=== PATIENT | male | born 1955 | race Caucasian/White ===

== ENCOUNTER 2020-01-23 10:36 | Observation (INO) ==
[2020-01-23 10:58] LABS: VBG HCO3 36 mEq/L (21-27); VBG PCO2 79 mmHg (41-51); VBG PH 7.27 pH Units (7.32-7.42); VBG PO2 26 mmHg (25-50)
[2020-01-23 11:12] LABS: Basophils % 0.7 %; Eosinophils % 0.7 %; Hemoglobin 17.2 g/dL (12.9-16.9); Immature Granulocytes % 0.4 % (0-4); Immature Platelets 6.5 % (1.1-6.1); Lymphocytes # 1.6 K/mcL (0.6-4.6); Lymphocytes % 28.4 %; Mean Corpuscular HGB Conc 30.7 g/dL (31.6-35.5); Mean Corpuscular Hemoglobin 32.1 pg (28.0-33.3); Mean Corpuscular Volume 104.7 fL (83.0-100.0); Mean Platelet Volume 9.9 fL (9.4-12.4); Monocytes # 0.5 K/mcL (0.0-1.3); Monocytes % 9.3 %; Neutrophils # 3.4 K/mcL (1.6-8.9); Nucleated Red Blood Cells 0.4 /100 WBC (0); Platelet Count 130 K/mcL (140-400); Red Blood Count 5.36 M/mcL (4.19-5.50); Segmented Neutrophils % 60.5 %; White Blood Count 5.6 K/mcL (4.3-11.1)
[2020-01-23 11:13] LABS: Hematocrit 56.1 % (37.5-50.1)
[2020-01-23 11:40] LABS: Alanine Aminotransferase 55 Units/L (7-52); Albumin 4.1 g/dL (3.5-5.7); Albumin/Globulin Ratio 1.3 (1.1-2.2); Alkaline Phosphatase 45 Units/L (34-104); Aspartate Amino Transferase 36 Units/L (13-39); BUN/Creatinine Ratio 24 (6-26); Bilirubin,Direct 0.3 mg/dL (0.0-0.2); Bilirubin,Indirect 0.6 mg/dL (0.0-1.0); Bilirubin,Total 0.9 mg/dL (0.3-1.0); Blood Urea Nitrogen 19 mg/dL (8-23); Calcium 9.3 mg/dL (8.6-10.3); Carbon Dioxide 33 mEq/L (23-29); Chloride 94 mEq/L (98-107); Globulin 3.1 g/dL (2.4-3.5); Glucose 117 mg/dL (70-105); Osmolality,Calculated 279 (280-300); Potassium 5.1 mEq/L (3.5-5.1); Sodium 133 mEq/L (136-145); Total Protein 7.2 g/dL (6.4-8.9); Troponin I 0.03 ng/mL (< 0.04); eGFR For African Americans > 60 (> 60); eGFR For Non-African Americans > 60 (> 60)
[2020-01-23 12:39] LABS: INR 1.1; Prothrombin Time 12.6 Seconds (9.4-12.1)
[2020-01-23] MEDS ORDERED: Isovue-370 500 ML BOTTLE IVP ONE ×2 (12:46→14:47)
[2020-01-23] MEDS ORDERED: Naloxone 0.4 MG/ML INJ IVP PRN (14:51)
[2020-01-23] MEDS ORDERED: Ondansetron 4 MG/2 ML VIAL IVP PRN (14:51)
[2020-01-23] MEDS ORDERED: Perflutren Lipid Microsphere 1.3 ML in 0.9 % Sodium Chloride 8.7 ML IVP PRN (15:00)
[2020-01-23] MEDS ORDERED: Azithromycin 500 MG in 0.9 % Sodium Chloride 250 ML IVPB SCH (15:00)
[2020-01-23] MEDS: Albuterol 2.5 MG/3 ML NEBULIZER IH SCH ×2 (16:19→19:58)
[2020-01-23] MEDS: Furosemide 20 MG TABLET PO SCH (16:36)
[2020-01-23] MEDS: MethylPREDNISolone 40 MG/ML VIAL IVP SCH (16:36)
[2020-01-23] MEDS: *HR* Heparin 5,000 UNIT/ML VIAL SQ SCH ×2 (16:36→16:45)
[2020-01-24] MEDS: Albuterol 2.5 MG/3 ML NEBULIZER IH SCH ×3 (00:15→07:37)
[2020-01-24] MEDS: MethylPREDNISolone 40 MG/ML VIAL IVP SCH ×2 (00:15→05:53)
[2020-01-24 00:28] VITALS: BP 102/59
[2020-01-24] MEDS: Furosemide 20 MG TABLET PO SCH (10:22)
== END 2020-01-24 12:14 | disposition left against medical advice (07) ==
LOC: EMEROOARM 10:36 → 2ANU 10:36
PROVIDERS: ADMIT Internal Medicine; ATTEND Internal Medicine

== ENCOUNTER 2020-02-05 11:06 | Inpatient (IN) ==
[2020-02-05] MEDS ORDERED: Morphine Sulfate 2 MG/ML SYRINGE IVP ONE (11:20)
[2020-02-05] MEDS ORDERED: Ondansetron 4 MG/2 ML VIAL IVP ONE (11:20)
[2020-02-05] MEDS ORDERED: Dexamethasone 4 MG/ML VIAL IVP ONE (11:20)
[2020-02-05] MEDS ORDERED: Ipratropium/Albuterol Neb 3 ML IH ONE (11:44)
[2020-02-05 12:02] LABS: Alanine Aminotransferase 44 Units/L (7-52); Albumin 3.7 g/dL (3.5-5.7); Albumin/Globulin Ratio 1.2 (1.1-2.2); Alkaline Phosphatase 34 Units/L (34-104); Aspartate Amino Transferase 50 Units/L (13-39); BUN/Creatinine Ratio 26 (6-26); Bilirubin,Direct 0.2 mg/dL (0.0-0.2); Bilirubin,Indirect 0.7 mg/dL (0.0-1.0); Bilirubin,Total 0.9 mg/dL (0.3-1.0); Blood Urea Nitrogen 28 mg/dL (8-23); C-Reactive Protein 14 mg/L (Less than 10); Calcium 8.3 mg/dL (8.6-10.3); Carbon Dioxide 31 mEq/L (23-29); Chloride 90 mEq/L (98-107); Globulin 3.2 g/dL (2.4-3.5); Glucose 122 mg/dL (70-105); Lactate Dehydrogenase 260 Units/L (140-271); Osmolality,Calculated 279 (280-300); Phosphorous 4.7 mg/dL (2.7-4.5); Potassium 5.3 mEq/L (3.5-5.1); Sodium 131 mEq/L (136-145); Total Protein 6.9 g/dL (6.4-8.9); Troponin I 0.06 ng/mL (< 0.04); eGFR For African Americans > 60 (> 60); eGFR For Non-African Americans > 60 (> 60)
[2020-02-05] MEDS ORDERED: 0.9 % Sodium Chloride 1,000 ML IVC ONE ×2 (12:04→13:12)
[2020-02-05 12:26] LABS: Ferritin 43 ng/mL (20-250)
[2020-02-05 12:46] LABS: Basophils % 0.7 %; Hemoglobin 17.6 g/dL (12.9-16.9); INR 1.1; Immature Platelets 9.1 % (1.1-6.1); Lymphocytes # 0.8 K/mcL (0.6-4.6); Lymphocytes % 26.7 %; Mean Corpuscular HGB Conc 30.2 g/dL (31.6-35.5); Mean Corpuscular Hemoglobin 31.7 pg (28.0-33.3); Mean Corpuscular Volume 104.9 fL (83.0-100.0); Monocytes # 0.4 K/mcL (0.0-1.3); Monocytes % 12.8 %; Red Blood Count 5.56 M/mcL (4.19-5.50); Red Cell Distribution Width 16.5 % (11.5-14.5); Segmented Neutrophils % 58.8 %
[2020-02-05 12:49] LABS: Activated Partial Thrombo Time 26.2 Seconds (26.0-36.0)
[2020-02-05 12:51] LABS: Hematocrit 58.3 % (37.5-50.1); Neutrophils # 1.8 K/mcL (1.6-8.9); Platelet Count 86 K/mcL (140-400)
[2020-02-05] MEDS: FentaNYL (PF) 1,000 MCG/100 ML IV.SOLN IVC SCH ×2 (13:00→22:26)
[2020-02-05] MEDS ORDERED: *HR* FentaNYL (PF) 1,000 MCG/20 ML VIAL ONE (13:07)
[2020-02-05] MEDS ORDERED: Cefepime HCl 1,000 MG in Water for inj. (sterile) 10 ML IVP STA (13:12)
[2020-02-05] MEDS ORDERED: Vancomycin 1,250 MG/262.5 ML IV.SOLN IVPB ONE (13:12)
[2020-02-05] MEDS: DilTIAZem 50 MG/50 ML IV.SOLN IVC SCH (14:02)
[2020-02-05 14:08] LABS: ABG Base Excess 1 mEq/L (-2 to 3); ABG HCO3 32 mEq/L (21-27); ABG Oxygen Saturation 100 % (95-98); ABG PCO2 75 mmHg (35-45); ABG PH 7.24 pH Units (7.32-7.45); ABG PO2 275 mmHg (85-104); ABG TCO2 34 mEq/L (20-26); Blood Gas Modality ASSIST CONTROL; Blood Gas VT 500 cc
[2020-02-05] MEDS ORDERED: Artificial Tears SOLN 15 ML BOTTLE BOTH EYES PRN (15:20)
[2020-02-05] MEDS ORDERED: *HR* Etomidate 20 MG/10 ML AMPUL IVP ONE (17:15)
[2020-02-05] MEDS ORDERED: *HR* Rocuronium Bromide 100 MG/10 ML VIAL IVP ONE (17:15)
[2020-02-05 17:17] LABS: ABG Base Excess 2 mEq/L (-2 to 3); ABG HCO3 32 mEq/L (21-27); ABG Oxygen Saturation 95 % (95-98); ABG PCO2 68 mmHg (35-45); ABG PH 7.27 pH Units (7.32-7.45); ABG PO2 90 mmHg (85-104); ABG TCO2 34 mEq/L (20-26); Blood Gas Modality ASSIST CONTROL; Blood Gas VT 500 cc
[2020-02-05] MEDS: Doxycycline 100 MG in 0.9 % Sodium Chloride Mini Bag 100 ML IVPB SCH (18:32)
[2020-02-05] MEDS: Artificial Tears SOLN 15 ML BOTTLE BOTH EYES SCH ×2 (18:38→19:54)
[2020-02-05] MEDS: Cefepime HCl 2,000 MG in Water for inj. (sterile) 20 ML IVP SCH (18:38)
[2020-02-05] MEDS ORDERED: Naloxone 0.4 MG/ML INJ IVP PRN (19:38)
[2020-02-05] MEDS: Chlorhexidine Rinse 15 ML MOUTHWASH MM SCH (19:54)
[2020-02-05] MEDS: Phenylephrine 10 MG in 0.9 % Sodium Chloride 250 ML IVC SCH (20:59)
[2020-02-05] MEDS ORDERED: Perflutren Lipid Microsphere 1.3 ML in 0.9 % Sodium Chloride 8.7 ML IVP PRN (22:13)
[2020-02-05] MEDS ORDERED: *HR* Heparin 5,000 UNIT/ML VIAL IVP PRN ×2 (22:15)
[2020-02-05] MEDS ORDERED: *HR* Heparin 5,000 UNIT/ML VIAL IVP ONE (22:15)
[2020-02-06] MEDS ORDERED: *HR* Heparin 5,000 UNIT/ML VIAL SQ SCH
[2020-02-06] MEDS: Cefepime HCl 2,000 MG in Water for inj. (sterile) 20 ML IVP SCH ×3 (00:06→15:43)
[2020-02-06] MEDS: Heparin 25,000UNIT/250ML 1/2NS 25,000 UNIT/250 ML IV.SOLN IVC SCH ×2 (00:07→20:21)
[2020-02-06] MEDS: Artificial Tears SOLN 15 ML BOTTLE BOTH EYES SCH ×6 (00:08→20:21)
[2020-02-06] MEDS: Vancomycin 1,250 MG/262.5 ML IV.SOLN IVPB SCH ×2 (00:56→13:55)
[2020-02-06 04:31] LABS: ABG Base Excess 4 mEq/L (-2 to 3); ABG HCO3 27 mEq/L (21-27); ABG Oxygen Saturation 97 % (95-98); ABG PCO2 33 mmHg (35-45); ABG PH 7.52 pH Units (7.32-7.45); ABG PO2 81 mmHg (85-104); ABG TCO2 28 mEq/L (20-26); Blood Gas Modality ASSIST CONTROL; Blood Gas VT 500 cc
[2020-02-06] MEDS: Pantoprazole 40 MG VIAL IVP SCH ×2 (05:16→18:00)
[2020-02-06] MEDS: Doxycycline 100 MG in 0.9 % Sodium Chloride Mini Bag 100 ML IVPB SCH ×2 (05:16→18:00)
[2020-02-06 06:27] LABS: Heparin anti-factor XA UFH 1.41 IU/mL (0.30-0.70)
[2020-02-06] MEDS: Phenylephrine 10 MG in 0.9 % Sodium Chloride 250 ML IVC SCH (06:34)
[2020-02-06 06:37] LABS: Hematocrit 48.7 % (37.5-50.1)
[2020-02-06] MEDS: FentaNYL (PF) 1,000 MCG/100 ML IV.SOLN IVC SCH ×3 (06:37→23:01)
[2020-02-06 06:39] LABS: Basophils % 0.4 %; Hemoglobin 15.8 g/dL (12.9-16.9); Immature Granulocytes % 0.4 % (0-4); Immature Platelets 8.8 % (1.1-6.1); Lymphocytes # 0.6 K/mcL (0.6-4.6); Lymphocytes % 23.7 %; Mean Corpuscular HGB Conc 32.4 g/dL (31.6-35.5); Mean Corpuscular Hemoglobin 31.7 pg (28.0-33.3); Mean Corpuscular Volume 97.8 fL (83.0-100.0); Mean Platelet Volume 11.7 fL (9.4-12.4); Monocytes # 0.3 K/mcL (0.0-1.3); Monocytes % 11.6 %; Neutrophils # 1.6 K/mcL (1.6-8.9); Platelet Count 76 K/mcL (140-400); Red Blood Count 4.98 M/mcL (4.19-5.50); Segmented Neutrophils % 63.9 %; White Blood Count 2.5 K/mcL (4.3-11.1)
[2020-02-06 06:56] LABS: BUN/Creatinine Ratio 33 (6-26); Blood Urea Nitrogen 31 mg/dL (8-23); Calcium 7.5 mg/dL (8.6-10.3); Carbon Dioxide 25 mEq/L (23-29); Chloride 96 mEq/L (98-107); Glucose 103 mg/dL (70-105); Magnesium 1.7 mg/dL (1.6-2.6); Osmolality,Calculated 281 (280-300); Phosphorous 2.7 mg/dL (2.7-4.5); Sodium 132 mEq/L (136-145); eGFR For African Americans > 60 (> 60); eGFR For Non-African Americans > 60 (> 60)
[2020-02-06] MEDS: Chlorhexidine Rinse 15 ML MOUTHWASH MM SCH ×2 (08:31→20:21)
[2020-02-06] MEDS: Dexamethasone 4 MG/ML VIAL IVP SCH (08:32)
[2020-02-06] MEDS ORDERED: Pantoprazole 40 MG VIAL IVP SCH (09:00)
[2020-02-06] MEDS: Norepinephrine 4 MG/254 ML IV.SOLN IVC SCH ×3 (09:09→23:00)
[2020-02-06] MEDS: DilTIAZem 50 MG/50 ML IV.SOLN IVC SCH (13:51)
[2020-02-07] MEDS: Cefepime HCl 2,000 MG in Water for inj. (sterile) 20 ML IVP SCH ×4 (00:06→23:41)
[2020-02-07] MEDS: Artificial Tears SOLN 15 ML BOTTLE BOTH EYES SCH ×7 (00:06→23:41)
[2020-02-07] MEDS: Vancomycin 1,250 MG/262.5 ML IV.SOLN IVPB SCH (01:34)
[2020-02-07 05:04] LABS: ABG Base Excess 4 mEq/L (-2 to 3); ABG HCO3 31 mEq/L (21-27); ABG Oxygen Saturation 94 % (95-98); ABG PCO2 56 mmHg (35-45); ABG PH 7.35 pH Units (7.32-7.45); ABG PO2 78 mmHg (85-104); ABG TCO2 33 mEq/L (20-26); Blood Gas Modality AF; Blood Gas VT 450 cc
[2020-02-07] MEDS: FentaNYL (PF) 1,000 MCG/100 ML IV.SOLN IVC SCH ×3 (05:10→19:38)
[2020-02-07] MEDS: Pantoprazole 40 MG VIAL IVP SCH ×2 (05:10→18:05)
[2020-02-07] MEDS: Doxycycline 100 MG in 0.9 % Sodium Chloride Mini Bag 100 ML IVPB SCH ×2 (05:10→18:04)
[2020-02-07 05:41] LABS: Hematocrit 49.5 % (37.5-50.1); Immature Granulocytes % 0.3 % (0-4); Mean Corpuscular Volume 100.4 fL (83.0-100.0); Red Blood Count 4.93 M/mcL (4.19-5.50); Red Cell Distribution Width 16.3 % (11.5-14.5)
[2020-02-07 05:43] LABS: Hemoglobin 15.6 g/dL (12.9-16.9); Immature Platelets 8.3 % (1.1-6.1); Lymphocytes # 0.3 K/mcL (0.6-4.6); Lymphocytes % 8.9 %; Mean Corpuscular HGB Conc 31.5 g/dL (31.6-35.5); Mean Corpuscular Hemoglobin 31.6 pg (28.0-33.3); Mean Platelet Volume 11.9 fL (9.4-12.4); Monocytes # 0.3 K/mcL (0.0-1.3); Monocytes % 8.6 %; Neutrophils # 2.9 K/mcL (1.6-8.9); Segmented Neutrophils % 82.2 %; White Blood Count 3.5 K/mcL (4.3-11.1)
[2020-02-07 05:54] LABS: Heparin anti-factor XA UFH 0.64 IU/mL (0.30-0.70)
[2020-02-07 05:58] LABS: Alanine Aminotransferase 31 Units/L (7-52); Albumin 2.8 g/dL (3.5-5.7); Alkaline Phosphatase 25 Units/L (34-104); Aspartate Amino Transferase 35 Units/L (13-39); BUN/Creatinine Ratio 30 (6-26); Bilirubin,Total 0.9 mg/dL (0.3-1.0); Blood Urea Nitrogen 25 mg/dL (8-23); Calcium 7.6 mg/dL (8.6-10.3); Carbon Dioxide 28 mEq/L (23-29); Chloride 101 mEq/L (98-107); Globulin 2.7 g/dL (2.4-3.5); Glucose 134 mg/dL (70-105); Magnesium 1.7 mg/dL (1.6-2.6); Osmolality,Calculated 288 (280-300); Potassium 4.1 mEq/L (3.5-5.1); Sodium 136 mEq/L (136-145); Total Protein 5.5 g/dL (6.4-8.9); eGFR For African Americans > 60 (> 60); eGFR For Non-African Americans > 60 (> 60)
[2020-02-07 06:10] LABS: Thyroid Stimulating Hormone 0.905 mcIU/mL (0.340-5.600)
[2020-02-07 06:13] LABS: Platelet Count 77 K/mcL (140-400)
[2020-02-07] MEDS: Chlorhexidine Rinse 15 ML MOUTHWASH MM SCH ×2 (07:55→20:45)
[2020-02-07] MEDS: Dexamethasone 4 MG/ML VIAL IVP SCH (07:56)
[2020-02-07] MEDS: Heparin 25,000UNIT/250ML 1/2NS 25,000 UNIT/250 ML IV.SOLN IVC SCH ×2 (08:36→18:07)
[2020-02-07] MEDS ORDERED: Dexamethasone Sodium Phos/PF 10 MG/ML VIAL IVP ONE (11:30)
[2020-02-07] MEDS: Aspirin 81 MG TAB.CHEW PO SCH (15:18)
[2020-02-07] MEDS: DilTIAZem 50 MG/50 ML IV.SOLN IVC SCH (15:18)
[2020-02-07] MEDS: Norepinephrine 4 MG/254 ML IV.SOLN IVC SCH (15:55)
[2020-02-07] MEDS: Midazolam HCl 50 MG/100 ML IV.SOLN IVC SCH (17:45)
[2020-02-07] MEDS: Phenylephrine 10 MG in 0.9 % Sodium Chloride 250 ML IVC SCH (20:46)
[2020-02-07] MEDS ORDERED: Furosemide 40 MG/4 ML VIAL IVP ONE (21:50)
[2020-02-08] MEDS: FentaNYL (PF) 1,000 MCG/100 ML IV.SOLN IVC SCH ×2 (01:49→09:40)
[2020-02-08] MEDS: Artificial Tears SOLN 15 ML BOTTLE BOTH EYES SCH ×6 (02:52→23:11)
[2020-02-08 03:54] LABS: Hematocrit 50.4 % (37.5-50.1); Hemoglobin 16.3 g/dL (12.9-16.9); Immature Granulocytes % 0.4 % (0-4); Immature Platelets 8.5 % (1.1-6.1); Lymphocytes # 0.2 K/mcL (0.6-4.6); Lymphocytes % 3.5 %; Mean Corpuscular HGB Conc 32.3 g/dL (31.6-35.5); Mean Corpuscular Hemoglobin 31.8 pg (28.0-33.3); Mean Corpuscular Volume 98.4 fL (83.0-100.0); Mean Platelet Volume 11.2 fL (9.4-12.4); Monocytes # 0.3 K/mcL (0.0-1.3); Monocytes % 7.3 %; Platelet Count 76 K/mcL (140-400); Red Blood Count 5.12 M/mcL (4.19-5.50); Red Cell Distribution Width 16.8 % (11.5-14.5); Segmented Neutrophils % 88.8 %; White Blood Count 4.5 K/mcL (4.3-11.1)
[2020-02-08 04:11] LABS: BUN/Creatinine Ratio 29 (6-26); Blood Urea Nitrogen 21 mg/dL (8-23); Carbon Dioxide 32 mEq/L (23-29); Chloride 99 mEq/L (98-107); Glucose 163 mg/dL (70-105); Osmolality,Calculated 291 (280-300); Potassium 3.9 mEq/L (3.5-5.1); Sodium 137 mEq/L (136-145); eGFR For African Americans > 60 (> 60); eGFR For Non-African Americans > 60 (> 60)
[2020-02-08 04:23] LABS: Anisocytosis 1+ (Not Present); Platelet Estimate Decreased (Normal); Reactive Lymphocytes Present (Not Present)
[2020-02-08 05:39] LABS: ABG Base Excess 6 mEq/L (-2 to 3); ABG HCO3 35 mEq/L (21-27); ABG Oxygen Saturation 90 % (95-98); ABG PCO2 61 mmHg (35-45); ABG PH 7.36 pH Units (7.32-7.45); ABG PO2 62 mmHg (85-104); ABG TCO2 37 mEq/L (20-26); Blood Gas VT 450 cc
[2020-02-08] MEDS: Doxycycline 100 MG in 0.9 % Sodium Chloride Mini Bag 100 ML IVPB SCH ×2 (05:50→17:20)
[2020-02-08] MEDS: Pantoprazole 40 MG VIAL IVP SCH (05:51)
[2020-02-08] MEDS: Midazolam HCl 50 MG/100 ML IV.SOLN IVC SCH ×3 (09:39→23:40)
[2020-02-08] MEDS: Cefepime HCl 2,000 MG in Water for inj. (sterile) 20 ML IVP SCH ×3 (10:05→23:12)
[2020-02-08] MEDS: Chlorhexidine Rinse 15 ML MOUTHWASH MM SCH ×2 (10:05→21:15)
[2020-02-08] MEDS: Aspirin 81 MG TAB.CHEW PO SCH (10:06)
[2020-02-08] MEDS: Norepinephrine 4 MG/254 ML IV.SOLN IVC SCH (11:14)
[2020-02-08] MEDS: DilTIAZem 50 MG/50 ML IV.SOLN IVC SCH (14:07)
[2020-02-08] MEDS: FentaNYL (PF) 2,500 MCG/50 ML IV.SOLN IVC SCH ×2 (14:57→23:39)
[2020-02-08] MEDS: Furosemide 40 MG/4 ML VIAL IVP SCH (21:15)
[2020-02-08] MEDS: Heparin 25,000UNIT/250ML 1/2NS 25,000 UNIT/250 ML IV.SOLN IVC SCH (21:21)
[2020-02-08] MEDS: Phenylephrine 10 MG in 0.9 % Sodium Chloride 250 ML IVC SCH (21:22)
[2020-02-08] MEDS ORDERED: 0.9 % Sodium Chloride 500 ML ONE (23:01)
[2020-02-09] MEDS: Norepinephrine 4 MG/254 ML IV.SOLN IVC SCH ×2 (00:46→18:42)
[2020-02-09 04:09] LABS: VBG Ionized Calcium 1.04 mmol/L (1.15-1.35)
[2020-02-09 04:16] LABS: ABG Base Excess 8 mEq/L (-2 to 3); ABG HCO3 36 mEq/L (21-27); ABG Oxygen Saturation 92 % (95-98); ABG PCO2 59 mmHg (35-45); ABG PO2 68 mmHg (85-104); ABG TCO2 38 mEq/L (20-26); Blood Gas VT 420 cc
[2020-02-09 04:17] LABS: Immature Granulocytes % 0.4 % (0-4)
[2020-02-09 04:19] LABS: Hematocrit 48.6 % (37.5-50.1); Hemoglobin 15.7 g/dL (12.9-16.9); Immature Platelets 9.3 % (1.1-6.1); Lymphocytes # 0.2 K/mcL (0.6-4.6); Lymphocytes % 4.9 %; Mean Corpuscular HGB Conc 32.3 g/dL (31.6-35.5); Mean Corpuscular Hemoglobin 32.6 pg (28.0-33.3); Mean Corpuscular Volume 100.8 fL (83.0-100.0); Mean Platelet Volume 11.7 fL (9.4-12.4); Monocytes # 0.4 K/mcL (0.0-1.3); Monocytes % 7.1 %; Neutrophils # 4.3 K/mcL (1.6-8.9); Red Blood Count 4.82 M/mcL (4.19-5.50); Red Cell Distribution Width 16.3 % (11.5-14.5); Segmented Neutrophils % 87.6 %; White Blood Count 4.9 K/mcL (4.3-11.1)
[2020-02-09] MEDS: Artificial Tears SOLN 15 ML BOTTLE BOTH EYES SCH ×5 (04:20→21:16)
[2020-02-09 04:28] LABS: Platelet Count 80 K/mcL (140-400)
[2020-02-09 04:35] LABS: Alanine Aminotransferase 24 Units/L (7-52); Albumin 2.9 g/dL (3.5-5.7); Alkaline Phosphatase 28 Units/L (34-104); Aspartate Amino Transferase 25 Units/L (13-39); BUN/Creatinine Ratio 29 (6-26); Bilirubin,Total 0.7 mg/dL (0.3-1.0); Blood Urea Nitrogen 20 mg/dL (8-23); Calcium 7.9 mg/dL (8.6-10.3); Carbon Dioxide 35 mEq/L (23-29); Chloride 97 mEq/L (98-107); Glucose 172 mg/dL (70-105); Magnesium 1.6 mg/dL (1.6-2.6); Osmolality,Calculated 289 (280-300); Phosphorous 2.7 mg/dL (2.7-4.5); Sodium 136 mEq/L (136-145); Total Protein 5.9 g/dL (6.4-8.9); eGFR For African Americans > 60 (> 60); eGFR For Non-African Americans > 60 (> 60)
[2020-02-09] MEDS: Doxycycline 100 MG in 0.9 % Sodium Chloride Mini Bag 100 ML IVPB SCH ×2 (05:32→17:07)
[2020-02-09] MEDS: Midazolam HCl 50 MG/100 ML IV.SOLN IVC SCH ×2 (06:37→16:35)
[2020-02-09] MEDS: FentaNYL (PF) 2,500 MCG/50 ML IV.SOLN IVC SCH ×2 (06:38→18:18)
[2020-02-09] MEDS: Furosemide 40 MG/4 ML VIAL IVP SCH ×2 (07:48→15:13)
[2020-02-09] MEDS: Chlorhexidine Rinse 15 ML MOUTHWASH MM SCH ×2 (07:48→21:16)
[2020-02-09] MEDS: Cefepime HCl 2,000 MG in Water for inj. (sterile) 20 ML IVP SCH ×2 (07:50→15:12)
[2020-02-09] MEDS: Aspirin 81 MG TAB.CHEW PO SCH (07:51)
[2020-02-09] MEDS: Pantoprazole 40 MG VIAL IVP SCH (07:51)
[2020-02-09] MEDS ORDERED: Bisacodyl 10 MG RECTAL SUPPOSITORY RC PRN (11:27)
[2020-02-09] MEDS: DilTIAZem 50 MG/50 ML IV.SOLN IVC SCH (11:49)
[2020-02-09] MEDS: Heparin 25,000UNIT/250ML 1/2NS 25,000 UNIT/250 ML IV.SOLN IVC SCH (13:39)
[2020-02-09] MEDS: Phenylephrine 10 MG in 0.9 % Sodium Chloride 250 ML IVC SCH (16:37)
[2020-02-09] MEDS: Lactulose Oral Soln 20 GM/30 ML UDC PO SCH (21:16)
[2020-02-10] MEDS: Midazolam HCl 50 MG/100 ML IV.SOLN IVC SCH ×3 (02:30→20:55)
[2020-02-10] MEDS: Artificial Tears SOLN 15 ML BOTTLE BOTH EYES SCH ×6 (04:08→20:23)
[2020-02-10] MEDS ORDERED: *HR* Metoprolol 5 MG/5 ML VIAL IVP ONE ×2 (04:28→04:37)
[2020-02-10 04:34] LABS: ABG Base Excess 12 mEq/L (-2 to 3); ABG HCO3 41 mEq/L (21-27); ABG Oxygen Saturation 93 % (95-98); ABG PCO2 71 mmHg (35-45); ABG PH 7.37 pH Units (7.32-7.45); ABG PO2 71 mmHg (85-104); ABG TCO2 43 mEq/L (20-26); Blood Gas Modality ASSIST CONTROL; Blood Gas VT 420 cc
[2020-02-10] MEDS: Doxycycline 100 MG in 0.9 % Sodium Chloride Mini Bag 100 ML IVPB SCH ×2 (05:47→16:55)
[2020-02-10] MEDS: FentaNYL (PF) 2,500 MCG/50 ML IV.SOLN IVC SCH ×2 (05:47→16:52)
[2020-02-10 06:11] LABS: Red Cell Distribution Width 16.1 % (11.5-14.5)
[2020-02-10 06:13] LABS: Hemoglobin 13.7 g/dL (12.9-16.9); Immature Granulocytes % 0.3 % (0-4); Immature Platelets 9.8 % (1.1-6.1); Lymphocytes # 0.6 K/mcL (0.6-4.6); Lymphocytes % 9.6 %; Mean Corpuscular HGB Conc 31.1 g/dL (31.6-35.5); Mean Corpuscular Hemoglobin 31.2 pg (28.0-33.3); Mean Corpuscular Volume 100.2 fL (83.0-100.0); Mean Platelet Volume 11.2 fL (9.4-12.4); Monocytes # 0.4 K/mcL (0.0-1.3); Monocytes % 6.9 %; Neutrophils # 4.9 K/mcL (1.6-8.9); Red Blood Count 4.39 M/mcL (4.19-5.50); Segmented Neutrophils % 83.2 %; White Blood Count 5.9 K/mcL (4.3-11.1)
[2020-02-10 06:15] LABS: Heparin anti-factor XA UFH 0.53 IU/mL (0.30-0.70); Prothrombin Time 11.5 Seconds (9.4-12.1)
[2020-02-10 06:17] LABS: Platelet Count 75 K/mcL (140-400)
[2020-02-10 06:18] LABS: Activated Partial Thrombo Time 56.7 Seconds (26.0-36.0)
[2020-02-10 06:24] LABS: VBG Ionized Calcium 1.01 mmol/L (1.15-1.35)
[2020-02-10 06:37] LABS: Alanine Aminotransferase 25 Units/L (7-52); Albumin 2.6 g/dL (3.5-5.7); Alkaline Phosphatase 24 Units/L (34-104); Aspartate Amino Transferase 26 Units/L (13-39); BUN/Creatinine Ratio 37 (6-26); Bilirubin,Total 0.5 mg/dL (0.3-1.0); Blood Urea Nitrogen 26 mg/dL (8-23); Calcium 7.8 mg/dL (8.6-10.3); Carbon Dioxide 37 mEq/L (23-29); Chloride 96 mEq/L (98-107); Globulin 2.6 g/dL (2.4-3.5); Glucose 132 mg/dL (70-105); Magnesium 1.5 mg/dL (1.6-2.6); Osmolality,Calculated 291 (280-300); Phosphorous 2.9 mg/dL (2.7-4.5); Sodium 137 mEq/L (136-145); Total Protein 5.2 g/dL (6.4-8.9); eGFR For African Americans > 60 (> 60); eGFR For Non-African Americans > 60 (> 60)
[2020-02-10] MEDS: Furosemide 40 MG/4 ML VIAL IVP SCH ×2 (08:03→16:03)
[2020-02-10] MEDS: Pantoprazole 40 MG VIAL IVP SCH (08:04)
[2020-02-10] MEDS: Chlorhexidine Rinse 15 ML MOUTHWASH MM SCH ×2 (08:04→20:26)
[2020-02-10] MEDS: Aspirin 81 MG TAB.CHEW PO SCH (08:04)
[2020-02-10] MEDS: Cefepime HCl 2,000 MG in Water for inj. (sterile) 20 ML IVP SCH ×3 (08:04→16:03)
[2020-02-10] MEDS: DilTIAZem 50 MG/50 ML IV.SOLN IVC SCH (12:13)
[2020-02-10] MEDS: Heparin 25,000UNIT/250ML 1/2NS 25,000 UNIT/250 ML IV.SOLN IVC SCH (13:55)
[2020-02-10] MEDS: Phenylephrine 10 MG in 0.9 % Sodium Chloride 250 ML IVC SCH (20:24)
[2020-02-10] MEDS: Lactulose Oral Soln 20 GM/30 ML UDC PO SCH (20:26)
[2020-02-11] MEDS: Cefepime HCl 2,000 MG in Water for inj. (sterile) 20 ML IVP SCH ×4 (00:01→23:25)
[2020-02-11] MEDS: Artificial Tears SOLN 15 ML BOTTLE BOTH EYES SCH ×7 (00:01→23:25)
[2020-02-11 04:14] LABS: Immature Granulocytes % 0.4 % (0-4)
[2020-02-11 04:15] LABS: VBG Ionized Calcium 1.03 mmol/L (1.15-1.35)
[2020-02-11 04:16] LABS: Hematocrit 40.7 % (37.5-50.1); Hemoglobin 12.8 g/dL (12.9-16.9); Immature Platelets 9.4 % (1.1-6.1); Lymphocytes # 0.7 K/mcL (0.6-4.6); Lymphocytes % 10.2 %; Mean Corpuscular HGB Conc 31.4 g/dL (31.6-35.5); Mean Corpuscular Hemoglobin 31.2 pg (28.0-33.3); Mean Corpuscular Volume 99.3 fL (83.0-100.0); Mean Platelet Volume 10.6 fL (9.4-12.4); Monocytes # 0.7 K/mcL (0.0-1.3); Monocytes % 9.4 %; Neutrophils # 5.6 K/mcL (1.6-8.9); Red Cell Distribution Width 15.5 % (11.5-14.5)
[2020-02-11] MEDS: Midazolam HCl 50 MG/100 ML IV.SOLN IVC SCH ×4 (04:16→22:26)
[2020-02-11 04:18] LABS: Prothrombin Time 11.1 Seconds (9.4-12.1)
[2020-02-11 04:19] LABS: Platelet Count 88 K/mcL (140-400)
[2020-02-11 04:19] LABS: Activated Partial Thrombo Time 57.7 Seconds (26.0-36.0)
[2020-02-11 04:22] LABS: ABG Base Excess 13 mEq/L (-2 to 3); ABG HCO3 42 mEq/L (21-27); ABG Oxygen Saturation 88 % (95-98); ABG PCO2 70 mmHg (35-45); ABG PH 7.38 pH Units (7.32-7.45); ABG PO2 59 mmHg (85-104); ABG TCO2 44 mEq/L (20-26); Blood Gas Modality ASSIST CONTROL; Blood Gas VT 420 cc
[2020-02-11 04:40] LABS: Alanine Aminotransferase 28 Units/L (7-52); Albumin 2.8 g/dL (3.5-5.7); Alkaline Phosphatase 28 Units/L (34-104); Aspartate Amino Transferase 28 Units/L (13-39); BUN/Creatinine Ratio 46 (6-26); Bilirubin,Total 0.5 mg/dL (0.3-1.0); Blood Urea Nitrogen 33 mg/dL (8-23); Carbon Dioxide 41 mEq/L (23-29); Chloride 91 mEq/L (98-107); Globulin 2.7 g/dL (2.4-3.5); Glucose 134 mg/dL (70-105); Magnesium 1.9 mg/dL (1.6-2.6); Osmolality,Calculated 289 (280-300); Phosphorous 2.6 mg/dL (2.7-4.5); Potassium 4.2 mEq/L (3.5-5.1); Sodium 135 mEq/L (136-145); Total Protein 5.5 g/dL (6.4-8.9); eGFR For African Americans > 60 (> 60); eGFR For Non-African Americans > 60 (> 60)
[2020-02-11] MEDS: Doxycycline 100 MG in 0.9 % Sodium Chloride Mini Bag 100 ML IVPB SCH ×2 (05:27→16:58)
[2020-02-11] MEDS: FentaNYL (PF) 2,500 MCG/50 ML IV.SOLN IVC SCH ×2 (06:54→14:39)
[2020-02-11] MEDS: Norepinephrine 4 MG/254 ML IV.SOLN IVC SCH (08:48)
[2020-02-11] MEDS: Pantoprazole 40 MG VIAL IVP SCH (08:51)
[2020-02-11] MEDS: Aspirin 81 MG TAB.CHEW PO SCH (08:52)
[2020-02-11] MEDS: Chlorhexidine Rinse 15 ML MOUTHWASH MM SCH ×2 (08:52→19:50)
[2020-02-11] MEDS: Furosemide 40 MG/4 ML VIAL IVP SCH ×2 (08:52→15:24)
[2020-02-11] MEDS: Heparin 25,000UNIT/250ML 1/2NS 25,000 UNIT/250 ML IV.SOLN IVC SCH (09:53)
[2020-02-11] MEDS: DilTIAZem 50 MG/50 ML IV.SOLN IVC SCH (11:37)
[2020-02-11] MEDS: Phenylephrine 10 MG in 0.9 % Sodium Chloride 250 ML IVC SCH (19:47)
[2020-02-11] MEDS: Lactulose Oral Soln 20 GM/30 ML UDC PO SCH (19:50)
[2020-02-12] MEDS: FentaNYL (PF) 2,500 MCG/50 ML IV.SOLN IVC SCH ×3 (00:41→21:20)
[2020-02-12 04:19] LABS: VBG Ionized Calcium 1.03 mmol/L (1.15-1.35)
[2020-02-12 04:19] LABS: Red Cell Distribution Width 15.1 % (11.5-14.5)
[2020-02-12 04:21] LABS: Hematocrit 35.2 % (37.5-50.1); Hemoglobin 11.3 g/dL (12.9-16.9); Immature Granulocytes % 0.7 % (0-4); Immature Platelets 11.1 % (1.1-6.1); Lymphocytes % 9.8 %; Mean Corpuscular HGB Conc 32.1 g/dL (31.6-35.5); Mean Corpuscular Hemoglobin 31.6 pg (28.0-33.3); Mean Corpuscular Volume 98.3 fL (83.0-100.0); Mean Platelet Volume 11.3 fL (9.4-12.4); Monocytes # 0.8 K/mcL (0.0-1.3); Monocytes % 10.5 %; Red Blood Count 3.58 M/mcL (4.19-5.50); White Blood Count 7.6 K/mcL (4.3-11.1)
[2020-02-12 04:22] LABS: Prothrombin Time 11.6 Seconds (9.4-12.1)
[2020-02-12 04:22] LABS: ABG Base Excess 12 mEq/L (-2 to 3); ABG HCO3 38 mEq/L (21-27); ABG Oxygen Saturation 90 % (95-98); ABG PCO2 58 mmHg (35-45); ABG PH 7.43 pH Units (7.32-7.45); ABG PO2 60 mmHg (85-104); ABG TCO2 40 mEq/L (20-26); Blood Gas Modality ASSIST CONTROL; Blood Gas VT 420 cc
[2020-02-12 04:24] LABS: Activated Partial Thrombo Time 58.8 Seconds (26.0-36.0)
[2020-02-12 04:26] LABS: Lymphocytes # 0.7 K/mcL (0.6-4.6); Platelet Count 96 K/mcL (140-400)
[2020-02-12] MEDS: Artificial Tears SOLN 15 ML BOTTLE BOTH EYES SCH ×6 (04:33→23:23)
[2020-02-12 04:45] LABS: Alanine Aminotransferase 32 Units/L (7-52); Albumin 2.8 g/dL (3.5-5.7); Albumin/Globulin Ratio 1.1 (1.1-2.2); Alkaline Phosphatase 38 Units/L (34-104); Aspartate Amino Transferase 37 Units/L (13-39); BUN/Creatinine Ratio 53 (6-26); Bilirubin,Total 0.5 mg/dL (0.3-1.0); Blood Urea Nitrogen 43 mg/dL (8-23); Calcium 8.1 mg/dL (8.6-10.3); Carbon Dioxide 42 mEq/L (23-29); Chloride 88 mEq/L (98-107); Globulin 2.5 g/dL (2.4-3.5); Glucose 139 mg/dL (70-105); Magnesium 1.8 mg/dL (1.6-2.6); Osmolality,Calculated 291 (280-300); Phosphorous 3.1 mg/dL (2.7-4.5); Sodium 134 mEq/L (136-145); Total Protein 5.3 g/dL (6.4-8.9); eGFR For African Americans > 60 (> 60); eGFR For Non-African Americans > 60 (> 60)
[2020-02-12] MEDS: Doxycycline 100 MG in 0.9 % Sodium Chloride Mini Bag 100 ML IVPB SCH (05:40)
[2020-02-12] MEDS: Midazolam HCl 50 MG/100 ML IV.SOLN IVC SCH ×2 (09:00→17:20)
[2020-02-12] MEDS: Heparin 25,000UNIT/250ML 1/2NS 25,000 UNIT/250 ML IV.SOLN IVC SCH (09:09)
[2020-02-12] MEDS: Chlorhexidine Rinse 15 ML MOUTHWASH MM SCH ×2 (09:22→19:41)
[2020-02-12] MEDS: Pantoprazole 40 MG VIAL IVP SCH (09:23)
[2020-02-12] MEDS: Aspirin 81 MG TAB.CHEW PO SCH (09:23)
[2020-02-12] MEDS: Cefepime HCl 2,000 MG in Water for inj. (sterile) 20 ML IVP SCH ×3 (09:26→23:22)
[2020-02-12] MEDS: Furosemide 40 MG/4 ML VIAL IVP SCH (11:39)
[2020-02-12] MEDS: DilTIAZem 50 MG/50 ML IV.SOLN IVC SCH (12:49)
[2020-02-12] MEDS ORDERED: acetaZOLAMIDE 250 MG in Water for inj. (sterile) 5 ML IVP ONE (15:22)
[2020-02-12] MEDS: Phenylephrine 10 MG in 0.9 % Sodium Chloride 250 ML IVC SCH (19:34)
[2020-02-12] MEDS: Norepinephrine 4 MG/254 ML IV.SOLN IVC SCH (19:35)
[2020-02-12] MEDS: Lactulose Oral Soln 20 GM/30 ML UDC PO SCH (19:41)
[2020-02-13] MEDS: Midazolam HCl 50 MG/100 ML IV.SOLN IVC SCH ×3 (01:50→20:21)
[2020-02-13] MEDS: Artificial Tears SOLN 15 ML BOTTLE BOTH EYES SCH ×5 (02:59→20:38)
[2020-02-13] MEDS: Heparin 25,000UNIT/250ML 1/2NS 25,000 UNIT/250 ML IV.SOLN IVC SCH (03:01)
[2020-02-13 03:32] LABS: Hemoglobin 9.8 g/dL (12.9-16.9); Red Cell Distribution Width 15.1 % (11.5-14.5)
[2020-02-13 03:33] LABS: Hematocrit 31.1 % (37.5-50.1); Immature Granulocytes % 0.6 % (0-4); Immature Platelets 10.3 % (1.1-6.1); Lymphocytes # 0.7 K/mcL (0.6-4.6); Lymphocytes % 9.1 %; Mean Corpuscular HGB Conc 31.5 g/dL (31.6-35.5); Mean Corpuscular Hemoglobin 31.2 pg (28.0-33.3); Mean Platelet Volume 11.1 fL (9.4-12.4); Monocytes # 0.8 K/mcL (0.0-1.3); Monocytes % 9.6 %; Platelet Count 112 K/mcL (140-400); Red Blood Count 3.14 M/mcL (4.19-5.50); Segmented Neutrophils % 80.7 %
[2020-02-13 03:36] LABS: Neutrophils # 6.5 K/mcL (1.6-8.9)
[2020-02-13 03:39] LABS: Prothrombin Time 11.5 Seconds (9.4-12.1)
[2020-02-13 03:47] LABS: VBG Ionized Calcium 1.06 mmol/L (1.15-1.35)
[2020-02-13 03:50] LABS: ABG Base Excess 9 mEq/L (-2 to 3); ABG HCO3 37 mEq/L (21-27); ABG Oxygen Saturation 86 % (95-98); ABG PCO2 68 mmHg (35-45); ABG PH 7.34 pH Units (7.32-7.45); ABG PO2 57 mmHg (85-104); ABG TCO2 39 mEq/L (20-26); Blood Gas Modality AF; Blood Gas VT 420 cc
[2020-02-13 03:52] LABS: Alanine Aminotransferase 34 Units/L (7-52); Albumin 2.6 g/dL (3.5-5.7); Alkaline Phosphatase 30 Units/L (34-104); Aspartate Amino Transferase 52 Units/L (13-39); BUN/Creatinine Ratio 57 (6-26); Bilirubin,Direct 0.2 mg/dL (0.0-0.2); Bilirubin,Indirect 0.4 mg/dL (0.0-1.0); Bilirubin,Total 0.5 mg/dL (0.3-1.0); Bilirubin,Total 0.6 mg/dL (0.3-1.0); Blood Urea Nitrogen 41 mg/dL (8-23); Carbon Dioxide 39 mEq/L (23-29); Chloride 91 mEq/L (98-107); Globulin 2.6 g/dL (2.4-3.5); Glucose 134 mg/dL (70-105); Magnesium 1.9 mg/dL (1.6-2.6); Osmolality,Calculated 286 (280-300); Phosphorous 3.3 mg/dL (2.7-4.5); Potassium 3.8 mEq/L (3.5-5.1); Sodium 132 mEq/L (136-145); Total Protein 5.2 g/dL (6.4-8.9); eGFR For African Americans > 60 (> 60); eGFR For Non-African Americans > 60 (> 60)
[2020-02-13] MEDS: Cefepime HCl 2,000 MG in Water for inj. (sterile) 20 ML IVP SCH ×2 (08:19→16:27)
[2020-02-13] MEDS: Aspirin 81 MG TAB.CHEW PO SCH (08:20)
[2020-02-13] MEDS: Chlorhexidine Rinse 15 ML MOUTHWASH MM SCH ×2 (08:20→20:39)
[2020-02-13] MEDS: Pantoprazole 40 MG VIAL IVP SCH (08:21)
[2020-02-13] MEDS: FentaNYL (PF) 2,500 MCG/50 ML IV.SOLN IVC SCH ×2 (10:03→22:36)
[2020-02-13] MEDS: Norepinephrine 4 MG/254 ML IV.SOLN IVC SCH (11:35)
[2020-02-13] MEDS ORDERED: acetaZOLAMIDE 250 MG in Water for inj. (sterile) 5 ML IVP ONE (11:45)
[2020-02-13] MEDS: DilTIAZem 50 MG/50 ML IV.SOLN IVC SCH (12:54)
[2020-02-13 15:49] LABS: Hematocrit 30.8 % (37.5-50.1); Hemoglobin 9.6 g/dL (12.9-16.9)
[2020-02-13] MEDS: Lactulose Oral Soln 20 GM/30 ML UDC PO SCH (20:38)
[2020-02-13] MEDS: Phenylephrine 10 MG in 0.9 % Sodium Chloride 250 ML IVC SCH (20:46)
[2020-02-14] MEDS: Cefepime HCl 2,000 MG in Water for inj. (sterile) 20 ML IVP SCH ×3 (00:18→14:35)
[2020-02-14] MEDS: Artificial Tears SOLN 15 ML BOTTLE BOTH EYES SCH ×6 (00:18→20:51)
[2020-02-14 04:08] LABS: ABG Base Excess 7 mEq/L (-2 to 3); ABG HCO3 35 mEq/L (21-27); ABG Oxygen Saturation 88 % (95-98); ABG PCO2 66 mmHg (35-45); ABG PH 7.33 pH Units (7.32-7.45); ABG PO2 61 mmHg (85-104); ABG TCO2 37 mEq/L (20-26); Blood Gas Modality ASSIST CONTROL; Blood Gas VT 450 cc
[2020-02-14 05:02] LABS: Eosinophils % 0.3 %; Hemoglobin 9.7 g/dL (12.9-16.9); Immature Granulocytes % 0.9 % (0-4)
[2020-02-14 05:03] LABS: VBG Ionized Calcium 1.14 mmol/L (1.15-1.35)
[2020-02-14 05:03] LABS: Basophils % 0.1 %; Hematocrit 30.7 % (37.5-50.1); Immature Platelets 10.3 % (1.1-6.1); Lymphocytes # 0.7 K/mcL (0.6-4.6); Lymphocytes % 10.9 %; Mean Corpuscular HGB Conc 31.6 g/dL (31.6-35.5); Mean Corpuscular Hemoglobin 31.5 pg (28.0-33.3); Mean Corpuscular Volume 99.7 fL (83.0-100.0); Monocytes # 0.5 K/mcL (0.0-1.3); Monocytes % 7.6 %; Neutrophils # 5.5 K/mcL (1.6-8.9); Platelet Count 122 K/mcL (140-400); Red Blood Count 3.08 M/mcL (4.19-5.50); Red Cell Distribution Width 14.8 % (11.5-14.5); Segmented Neutrophils % 80.2 %; White Blood Count 6.8 K/mcL (4.3-11.1)
[2020-02-14] MEDS: *HR* Heparin 5,000 UNIT/ML VIAL SQ SCH ×2 (05:15→18:01)
[2020-02-14 05:22] LABS: Alanine Aminotransferase 36 Units/L (7-52); Albumin 2.8 g/dL (3.5-5.7); Alkaline Phosphatase 38 Units/L (34-104); Aspartate Amino Transferase 57 Units/L (13-39); BUN/Creatinine Ratio 53 (6-26); Bilirubin,Direct 0.1 mg/dL (0.0-0.2); Bilirubin,Indirect 0.5 mg/dL (0.0-1.0); Bilirubin,Total 0.6 mg/dL (0.3-1.0); Blood Urea Nitrogen 39 mg/dL (8-23); Calcium 8.2 mg/dL (8.6-10.3); Carbon Dioxide 37 mEq/L (23-29); Chloride 94 mEq/L (98-107); Globulin 2.7 g/dL (2.4-3.5); Glucose 123 mg/dL (70-105); Osmolality,Calculated 287 (280-300); Phosphorous 2.9 mg/dL (2.7-4.5); Potassium 3.9 mEq/L (3.5-5.1); Sodium 133 mEq/L (136-145); Total Protein 5.5 g/dL (6.4-8.9); eGFR For African Americans > 60 (> 60); eGFR For Non-African Americans > 60 (> 60)
[2020-02-14 05:23] LABS: Platelet Estimate Normal (Normal)
[2020-02-14] MEDS: Norepinephrine 4 MG/254 ML IV.SOLN IVC SCH (07:28)
[2020-02-14] MEDS: Midazolam HCl 50 MG/100 ML IV.SOLN IVC SCH ×2 (07:29→18:01)
[2020-02-14] MEDS: Chlorhexidine Rinse 15 ML MOUTHWASH MM SCH ×2 (08:41→20:53)
[2020-02-14] MEDS: Aspirin 81 MG TAB.CHEW PO SCH (08:42)
[2020-02-14] MEDS: Dexamethasone Sodium Phos/PF 10 MG/ML VIAL IVP SCH (08:43)
[2020-02-14] MEDS: Pantoprazole 40 MG VIAL IVP SCH (08:43)
[2020-02-14] MEDS ORDERED: Potassium Chloride Elixir 20 MEQ/15 ML UDC GTUBE ONE (11:33)
[2020-02-14] MEDS: Calcium Gluconate 1gm/50mL 1 GM/50 ML BAG IVPB SCH ×2 (14:36→15:49)
[2020-02-14] MEDS: Dexmedetomidine HCl 400 MCG/100 ML MLS IVC SCH (14:38)
[2020-02-14] MEDS: FentaNYL (PF) 2,500 MCG/50 ML IV.SOLN IVC SCH (15:26)
[2020-02-14] MEDS: DilTIAZem 50 MG/50 ML IV.SOLN IVC SCH (18:02)
[2020-02-14] MEDS: Phenylephrine 10 MG in 0.9 % Sodium Chloride 250 ML IVC SCH (20:51)
[2020-02-14] MEDS: Lactulose Oral Soln 20 GM/30 ML UDC PO SCH (20:53)
[2020-02-15] MEDS: Artificial Tears SOLN 15 ML BOTTLE BOTH EYES SCH ×5 (00:30→13:51)
[2020-02-15 04:29] LABS: ABG Base Excess 7 mEq/L (-2 to 3); ABG HCO3 34 mEq/L (21-27); ABG Oxygen Saturation 88 % (95-98); ABG PCO2 61 mmHg (35-45); ABG PH 7.36 pH Units (7.32-7.45); ABG PO2 58 mmHg (85-104); ABG TCO2 36 mEq/L (20-26); Blood Gas Modality ASSIST CONTROL; Blood Gas VT 450 cc
[2020-02-15 04:40] LABS: Segmented Neutrophils % 85.2 %
[2020-02-15 04:42] LABS: Hematocrit 30.4 % (37.5-50.1); Hemoglobin 9.6 g/dL (12.9-16.9); Immature Granulocytes % 0.9 % (0-4); Immature Platelets 10.7 % (1.1-6.1); Lymphocytes # 0.5 K/mcL (0.6-4.6); Lymphocytes % 7.9 %; Mean Corpuscular HGB Conc 31.6 g/dL (31.6-35.5); Mean Corpuscular Hemoglobin 31.7 pg (28.0-33.3); Mean Corpuscular Volume 100.3 fL (83.0-100.0); Mean Platelet Volume 11.1 fL (9.4-12.4); Monocytes # 0.4 K/mcL (0.0-1.3); Neutrophils # 5.4 K/mcL (1.6-8.9); Platelet Count 134 K/mcL (140-400); Red Blood Count 3.03 M/mcL (4.19-5.50); Red Cell Distribution Width 14.9 % (11.5-14.5); White Blood Count 6.3 K/mcL (4.3-11.1)
[2020-02-15] MEDS: FentaNYL (PF) 2,500 MCG/50 ML IV.SOLN IVC SCH ×2 (04:46→17:47)
[2020-02-15 05:00] LABS: Alanine Aminotransferase 40 Units/L (7-52); Albumin 2.7 g/dL (3.5-5.7); Albumin/Globulin Ratio 0.9 (1.1-2.2); Alkaline Phosphatase 40 Units/L (34-104); Aspartate Amino Transferase 53 Units/L (13-39); BUN/Creatinine Ratio 57 (6-26); Bilirubin,Direct 0.2 mg/dL (0.0-0.2); Bilirubin,Indirect 0.4 mg/dL (0.0-1.0); Bilirubin,Total 0.6 mg/dL (0.3-1.0); Blood Urea Nitrogen 37 mg/dL (8-23); Calcium 8.5 mg/dL (8.6-10.3); Carbon Dioxide 36 mEq/L (23-29); Chloride 97 mEq/L (98-107); Globulin 3.1 g/dL (2.4-3.5); Glucose 117 mg/dL (70-105); Magnesium 2.1 mg/dL (1.6-2.6); Osmolality,Calculated 290 (280-300); Phosphorous 2.7 mg/dL (2.7-4.5); Potassium 4.3 mEq/L (3.5-5.1); Sodium 135 mEq/L (136-145); Total Protein 5.8 g/dL (6.4-8.9); eGFR For African Americans > 60 (> 60); eGFR For Non-African Americans > 60 (> 60)
[2020-02-15] MEDS: Midazolam HCl 50 MG/100 ML IV.SOLN IVC SCH (05:10)
[2020-02-15] MEDS: *HR* Heparin 5,000 UNIT/ML VIAL SQ SCH (05:44)
[2020-02-15] MEDS ORDERED: Furosemide 40 MG/4 ML VIAL IVP ONE (06:00)
[2020-02-15] MEDS: Norepinephrine 4 MG/254 ML IV.SOLN IVC SCH (07:25)
[2020-02-15] MEDS: Pantoprazole 40 MG VIAL IVP SCH (07:26)
[2020-02-15] MEDS: Dexamethasone Sodium Phos/PF 10 MG/ML VIAL IVP SCH (07:26)
[2020-02-15] MEDS: Aspirin 81 MG TAB.CHEW PO SCH (07:26)
[2020-02-15] MEDS: Chlorhexidine Rinse 15 ML MOUTHWASH MM SCH (07:26)
[2020-02-15] MEDS: Dexmedetomidine HCl 400 MCG/100 ML MLS IVC SCH (08:24)
[2020-02-15] MEDS ORDERED: Bisacodyl 10 MG RECTAL SUPPOSITORY RC SCH (09:00)
[2020-02-15 12:19] VITALS: BP 178/133
[2020-02-15] MEDS: Phenylephrine 10 MG in 0.9 % Sodium Chloride 250 ML IVC SCH (13:51)
[2020-02-15] MEDS ORDERED: *HR* LORazepam 2 MG/ML VIAL IVP ONE (14:40)
[2020-02-15] MEDS ORDERED: Atropine Sulfate 1% 40 DROP/2 ML BOTTLE SL PRN (14:41)
[2020-02-15] MEDS ORDERED: Haloperidol Lactate 5 MG/ML VIAL IVP ONE (14:55)
[2020-02-15] MEDS: *HR* LORazepam 2 MG/ML VIAL IVP PRN ×2 (18:11→22:19)
[2020-02-15] MEDS: *HR* FentaNYL (PF) 100 MCG/2 ML VIAL IVP PRN ×2 (19:37→21:20)
[2020-02-15] MEDS: Haloperidol Lactate 5 MG/ML VIAL IVP PRN (23:49)
[2020-02-16] MEDS: *HR* FentaNYL (PF) 100 MCG/2 ML VIAL IVP PRN ×3 (00:10→03:35)
[2020-02-16] MEDS: *HR* LORazepam 2 MG/ML VIAL IVP PRN ×2 (03:24→09:42)
[2020-02-16] MEDS ORDERED: *HR* FentaNYL (PF) 100 MCG/2 ML VIAL IVP PRN (09:41)
[2020-02-16] MEDS: Haloperidol Lactate 5 MG/ML VIAL IVP PRN (09:42)
== END 2020-02-16 13:30 | disposition expired | DRG 870 ==
LOC: EMEROOARM 11:06 → 2NENU 15:53
PROVIDERS: ADMIT Family Medicine; ATTEND Family Medicine